=== PATIENT | female | born 1945 | race Caucasian/White ===

== ENCOUNTER 2021-10-06 23:05 | Inpatient (IN) ==
[2021-10-06] MEDS ORDERED: LACTATED RINGERS 1,000 ML IV ONE (23:35)
[2021-10-07 00:16] LABS: Basophils # 0.1 10*3/uL (0.0-0.2); Basophils % 0.3 % (0.0-0.8); Eosinophils % 0.1 % (0.00-10.9); Hematocrit 39.9 VOL% (35.7-47.0); Hemoglobin 13.1 GM/DL (12.0-16.0); Immature Granulocytes % 4.7 %; Lymphocytes # 1.5 10*3/uL (1.4-4.0); Mean Corpuscular HGB Conc 32.8 GM/DL (32-36); Mean Corpuscular Volume 95.2 FL (87-102); Mean Platelet Volume 11.7 FL (9.6-12.0); Monocytes % 6.1 % (1.7-12.7); NRBC # 0.02 10*3/uL; Neutrophils % 84.8 % (38.7-73.9); Platelet Count 161 T/CUMM (130-400); Red Blood Count 4.19 MC/CUMM (3.8-5.5); Red Cell Distribution Width 13.8 % (9.3-17.3)
[2021-10-07] MEDS ORDERED: cefTRIAXone 1,000 MG in SODIUM CHLORIDE 0.9% 100 ML IV STA (00:26)
[2021-10-07 00:47] LABS: Alanine Aminotransferase 54 U/L (13-56); Albumin 2.9 G/DL (3.4-5.0); Alkaline Phosphatase 53 U/L (45-117); Aspartate Amino Transferase 59 U/L (0-37); Blood Urea Nitrogen 25 MG/DL (7-18); Calcium 8.4 MG/DL (8.5-10.1); Carbon Dioxide 18 MMOL/L (21-32); Estimated Glom Filtration Rate 18 ML/MIN; Glucose 104 MG/DL (74-106); Osmolality,Calculated 291.7 MOS/KG (273-304); Potassium 3.1 MMOL/L (3.5-5.1); Sodium 145 MMOL/L (136-145); Total Protein 5.6 G/DL (6.4-8.2)
[2021-10-07] MEDS ORDERED: LACTATED RINGERS 1,000 ML IV ONE (01:23)
[2021-10-07 01:37] LABS: Band Neutrophils 7 % (0-10); Lymphocytes 5 % (20-55); Metamyelocytes 1 %; Platelet Estimate Normal; Segmented Neutrophils 83 % (50-85); Total Cells Counted 100
[2021-10-07 01:38] LABS: Stomatocytes Few
[2021-10-07 01:42] LABS: Bilirubin,Urine Negative (Negative); Blood, Urine Large mg/dL (Negative); Glucose,Urine (UA) Negative (Negative); Ketones,Urine Negative (Negative); Mucus,Urine Many /LPF (Occasional); Nitrite,Urine Positive (Negative); Protein,Urine 100 MG/DL; RBC,Urine 1734 /HPF (0-4); Urine Appearance CLOUDY (Clear); Urine Color Yellow (Yellow); Urine Specific Gravity 1.012 (1.001-1.035); Urine Urobilinogen < 2.0 EU/DL (<2.0)
[2021-10-07] MEDS ORDERED: DIGOXIN 0.5 MG/2 ML AMP IV STA (03:52)
[2021-10-07] MEDS ORDERED: NITROGLYCERIN SL 0.4 MG TABLET SL PRN (03:55)
[2021-10-07] MEDS ORDERED: ENOXAPARIN 100 MG/ML SYRINGE SUBCUT SCH (04:30)
[2021-10-07] MEDS ORDERED: ALBUTEROL 2.5 MG/3 ML NEB RESP TX PRN (04:49)
[2021-10-07] MEDS ORDERED: ONDANSETRON 4 MG/2 ML VIAL IV PRN (04:49)
[2021-10-07] MEDS ORDERED: ALUMINUM/MAGNES/SIMETH MAX STR 30 ML UDCUP PO PRN (04:49)
[2021-10-07] MEDS ORDERED: LEVOFLOXACIN INJ 750 MG/150 ML PREMIX IV ONE (05:00)
[2021-10-07] MEDS ORDERED: DIGOXIN 0.5 MG/2 ML AMP IV SCH (05:00)
[2021-10-07 06:06] LABS: Basophils # 0.2 10*3/uL (0.0-0.2); Basophils % 0.4 % (0.0-0.8); Hematocrit 38.8 VOL% (35.7-47.0); Hemoglobin 12.6 GM/DL (12.0-16.0); Immature Granulocytes Absolute 2.74 #; Lymphocytes # 2.5 10*3/uL (1.4-4.0); Lymphocytes % 6.4 % (21.3-54.2); Mean Corpuscular HGB Conc 32.5 GM/DL (32-36); Mean Corpuscular Volume 95.6 FL (87-102); Monocytes % 4.7 % (1.7-12.7); NRBC # 0.02 10*3/uL; Neutrophils % 81.5 % (38.7-73.9); Platelet Count 142 T/CUMM (130-400); Red Blood Count 4.06 MC/CUMM (3.8-5.5); Red Cell Distribution Width 13.9 % (9.3-17.3); White Blood Count 39.2 T/CUMM (4-12)
[2021-10-07] MEDS: PANTOPRAZOLE 40 MG VIAL IV SCH (06:20)
[2021-10-07 06:23] LABS: Albumin 2.6 G/DL (3.4-5.0); Bilirubin,Total 0.4 MG/DL (0.20-1.00); Calcium 8.5 MG/DL (8.5-10.1); Osmolality,Calculated 284.4 MOS/KG (273-304); Potassium 3.6 MMOL/L (3.5-5.1); Total Protein 5.7 G/DL (6.4-8.2)
[2021-10-07] MEDS: SODIUM BICARB INJ 50 MEQ in SODIUM CHLORIDE 0.45% 1,000 ML IV SCH ×2 (07:26→18:42)
[2021-10-07] MEDS: LEVOTHYROXINE 125 MCG TABLET PO SCH (07:33)
[2021-10-07 07:47] LABS: Band Neutrophils 8 % (0-10); Metamyelocytes 16 %; Segmented Neutrophils 74 % (50-85); Total Cells Counted 100
[2021-10-07 07:48] LABS: Platelet Estimate Normal
[2021-10-07] MEDS: ACETAMINOPHEN 325 MG TABLET PO PRN ×2 (08:07→16:53)
[2021-10-07] MEDS: ASPIRIN EC 81 MG TABLET PO SCH (08:08)
[2021-10-07] MEDS ORDERED: NOREPINEPHRINE 8 MG in SODIUM CHLORIDE 0.9% 242 ML IV PRN (08:29)
[2021-10-07] MEDS ORDERED: MAGNESIUM SULF RIDER 4 GM/100 ML PREMIX IV PRN (08:34)
[2021-10-07] MEDS: MAGNESIUM SULF RIDER 2 GM/50 ML PREMIX IV PRN (11:23)
[2021-10-07] MEDS: tiZANidine 4 MG TABLET PO PRN ×2 (11:23→18:00)
[2021-10-07] MEDS: POTASSIUM CHLORIDE 20 MEQ TABLET PO PRN (11:23)
[2021-10-07] MEDS ORDERED: HEPARIN DRIP 25,000 UNITS/500 ML PREMIX IV SCH (12:00)
[2021-10-07] MEDS: ROSUVASTATIN 20 MG TABLET PO SCH (21:17)
[2021-10-07] MEDS: cefTRIAXone 1,000 MG in SODIUM CHLORIDE 0.9% 100 ML IV SCH (21:31)
[2021-10-08] MEDS: tiZANidine 4 MG TABLET PO PRN ×2 (01:18→08:51)
[2021-10-08 03:31] LABS: Basophils % 0.1 % (0.0-0.8); Eosinophils % 0.1 % (0.00-10.9); Hematocrit 35.2 VOL% (35.7-47.0); Hemoglobin 11.5 GM/DL (12.0-16.0); Immature Granulocytes % 12.1 %; Immature Granulocytes Absolute 3.87 #; Lymphocytes # 2.5 10*3/uL (1.4-4.0); Lymphocytes % 7.8 % (21.3-54.2); Mean Corpuscular HGB Conc 32.7 GM/DL (32-36); Mean Corpuscular Volume 94.6 FL (87-102); Mean Platelet Volume 12.7 FL (9.6-12.0); Monocytes % 3.2 % (1.7-12.7); Neutrophils % 76.7 % (38.7-73.9); Platelet Count 109 T/CUMM (130-400); Red Blood Count 3.72 MC/CUMM (3.8-5.5); Red Cell Distribution Width 14.1 % (9.3-17.3); White Blood Count 31.9 T/CUMM (4-12)
[2021-10-08 03:43] LABS: Alanine Aminotransferase 33 U/L (13-56); Albumin 2.2 G/DL (3.4-5.0); Alkaline Phosphatase 51 U/L (45-117); Aspartate Amino Transferase 34 U/L (0-37); Bilirubin,Indirect 0.3 MG/DL (0.0-1.0); Bilirubin,Total < 0.39 MG/DL (0.20-1.00); Blood Urea Nitrogen 38 MG/DL (7-18); Calcium 8.3 MG/DL (8.5-10.1); Carbon Dioxide 22 MMOL/L (21-32); Estimated Glom Filtration Rate 23 ML/MIN; Glucose 96 MG/DL (74-106); Osmolality,Calculated 281.8 MOS/KG (273-304); Potassium 3.9 MMOL/L (3.5-5.1); Sodium 137 MMOL/L (136-145); Total Protein 5.1 G/DL (6.4-8.2)
[2021-10-08] MEDS: SODIUM BICARB INJ 50 MEQ in SODIUM CHLORIDE 0.45% 1,000 ML IV SCH ×3 (04:50→15:16)
[2021-10-08] MEDS: LEVOTHYROXINE 125 MCG TABLET PO SCH (06:11)
[2021-10-08 06:18] LABS: Band Neutrophils 13 % (0-10); Lymphocytes 7 % (20-55); Metamyelocytes 8 %; Platelet Estimate Adequate; Segmented Neutrophils 69 % (50-85); Total Cells Counted 100
[2021-10-08 06:19] LABS: Ovalocytes Few; Polychromasia Slight
[2021-10-08] MEDS: PANTOPRAZOLE 40 MG VIAL IV SCH (06:32)
[2021-10-08] MEDS: ASPIRIN EC 81 MG TABLET PO SCH (08:51)
[2021-10-08] MEDS: POTASSIUM CHLORIDE 20 MEQ TABLET PO PRN (08:51)
[2021-10-08 12:25] LABS: Risk Ratio 5.73; VLDL Cholesterol 30.8 MG/DL
[2021-10-08] MEDS: CITALOPRAM 20 MG TABLET PO SCH (20:35)
[2021-10-08] MEDS: ROSUVASTATIN 20 MG TABLET PO SCH ×2 (20:35→20:36)
[2021-10-08] MEDS: carvediloL 6.25 MG TABLET PO SCH (20:37)
[2021-10-08] MEDS: cefTRIAXone 1,000 MG in SODIUM CHLORIDE 0.9% 100 ML IV SCH (20:37)
[2021-10-08] MEDS: hydrALAZINE 20 MG/1 ML VIAL IV PRN (21:07)
[2021-10-08] MEDS: ACETAMINOPHEN 325 MG TABLET PO PRN (23:10)
[2021-10-09] MEDS: SODIUM BICARB INJ 50 MEQ in SODIUM CHLORIDE 0.45% 1,000 ML IV SCH ×3 (01:18→21:45)
[2021-10-09] MEDS: PANTOPRAZOLE 40 MG VIAL IV SCH (05:30)
[2021-10-09] MEDS: LEVOTHYROXINE 125 MCG TABLET PO SCH (05:44)
[2021-10-09 06:30] LABS: Basophils % 0.1 % (0.0-0.8); Eosinophils # 0.1 10*3/uL (0.0-0.87); Eosinophils % 0.3 % (0.00-10.9); Hematocrit 35.9 VOL% (35.7-47.0); Hemoglobin 12.1 GM/DL (12.0-16.0); Immature Granulocytes % 19.9 %; Immature Granulocytes Absolute 5.83 #; Lymphocytes # 2.6 10*3/uL (1.4-4.0); Lymphocytes % 8.8 % (21.3-54.2); Mean Corpuscular HGB Conc 33.7 GM/DL (32-36); Mean Corpuscular Volume 93.2 FL (87-102); Mean Platelet Volume 13.4 FL (9.6-12.0); Monocytes % 2.5 % (1.7-12.7); NRBC # 0.02 10*3/uL; Neutrophils % 68.4 % (38.7-73.9); Platelet Count 108 T/CUMM (130-400); Red Blood Count 3.85 MC/CUMM (3.8-5.5); Red Cell Distribution Width 13.9 % (9.3-17.3); White Blood Count 29.4 T/CUMM (4-12)
[2021-10-09 06:52] LABS: Albumin 2.1 G/DL (3.4-5.0); Bilirubin,Total 0.7 MG/DL (0.20-1.00); Calcium 8.3 MG/DL (8.5-10.1); Osmolality,Calculated 284.5 MOS/KG (273-304); Potassium 3.7 MMOL/L (3.5-5.1); Total Protein 5.5 G/DL (6.4-8.2)
[2021-10-09 07:04] LABS: Band Neutrophils 6 % (0-10); Hypochromia Slight; Lymphocytes 10 % (20-55); Microcytosis Slight; Platelet Estimate Decreased; Segmented Neutrophils 81 % (50-85); Total Cells Counted 100
[2021-10-09] MEDS: ASPIRIN EC 81 MG TABLET PO SCH (08:05)
[2021-10-09] MEDS: PANTOPRAZOLE 40 MG TABLET PO SCH (08:05)
[2021-10-09] MEDS: DULoxetine 30 MG CAPSULE PO SCH (08:05)
[2021-10-09] MEDS: carvediloL 6.25 MG TABLET PO SCH ×2 (08:05→23:07)
[2021-10-09] MEDS: amLODIPine 5 MG TABLET PO SCH (08:05)
[2021-10-09] MEDS ORDERED: LEVOFLOXACIN INJ 500 MG/100 ML PREMIX IV SCH (09:00)
[2021-10-09] MEDS: VANCOMYCIN 50 MG/ML 60 ML/BOTTLE PO SCH ×2 (13:30→17:50)
[2021-10-09] MEDS: ACETAMINOPHEN 325 MG TABLET PO PRN (13:32)
[2021-10-09] MEDS: ROSUVASTATIN 20 MG TABLET PO SCH (21:18)
[2021-10-09] MEDS: CITALOPRAM 20 MG TABLET PO SCH (21:48)
[2021-10-09] MEDS: tiZANidine 4 MG TABLET PO PRN (21:49)
[2021-10-09] MEDS: cefTRIAXone 1,000 MG in SODIUM CHLORIDE 0.9% 100 ML IV SCH (22:54)
[2021-10-10] MEDS: VANCOMYCIN 50 MG/ML 60 ML/BOTTLE PO SCH ×5 (04:41→23:35)
[2021-10-10 05:01] LABS: Basophils # 0.1 10*3/uL (0.0-0.2); Basophils % 0.4 % (0.0-0.8); Eosinophils # 0.2 10*3/uL (0.0-0.87); Eosinophils % 1.2 % (0.00-10.9); Hematocrit 35.5 VOL% (35.7-47.0); Hemoglobin 11.7 GM/DL (12.0-16.0); Immature Granulocytes % 0.5 %; Lymphocytes # 2.3 10*3/uL (1.4-4.0); Lymphocytes % 12.5 % (21.3-54.2); Mean Corpuscular Volume 92.7 FL (87-102); Mean Platelet Volume 12.8 FL (9.6-12.0); Monocytes % 4.8 % (1.7-12.7); Neutrophils % 80.6 % (38.7-73.9); Platelet Count 122 T/CUMM (130-400); Red Blood Count 3.83 MC/CUMM (3.8-5.5); Red Cell Distribution Width 13.8 % (9.3-17.3); White Blood Count 18.6 T/CUMM (4-12)
[2021-10-10 05:27] LABS: Calcium 8.2 MG/DL (8.5-10.1); Osmolality,Calculated 285.4 MOS/KG (273-304)
[2021-10-10 05:28] LABS: Hypochromia Slight; Lymphocytes 18 % (20-55); Microcytosis Slight; Platelet Estimate Normal; Segmented Neutrophils 81 % (50-85); Total Cells Counted 100
[2021-10-10] MEDS: LEVOTHYROXINE 125 MCG TABLET PO SCH (06:41)
[2021-10-10] MEDS: SODIUM BICARB INJ 50 MEQ in SODIUM CHLORIDE 0.45% 1,000 ML IV SCH ×2 (08:08→18:52)
[2021-10-10] MEDS ORDERED: ALUM/MAG/SIMETH/LIDO VISC 1:1 30 ML BOTTLE PO ONE ×2 (08:29→08:31)
[2021-10-10] MEDS: PANTOPRAZOLE 40 MG TABLET PO SCH (08:48)
[2021-10-10] MEDS: ASPIRIN EC 81 MG TABLET PO SCH (08:48)
[2021-10-10] MEDS: DULoxetine 30 MG CAPSULE PO SCH (08:48)
[2021-10-10] MEDS: carvediloL 6.25 MG TABLET PO SCH (08:48)
[2021-10-10] MEDS: hydrALAZINE 20 MG/1 ML VIAL IV PRN ×2 (08:48→14:03)
[2021-10-10] MEDS: amLODIPine 5 MG TABLET PO SCH (08:48)
[2021-10-10] MEDS: POTASSIUM CHLORIDE 20 MEQ TABLET PO PRN ×4 (08:48→16:01)
[2021-10-10] MEDS: ERTAPENEM 1,000 MG in SODIUM CHLORIDE 0.9% 100 ML IV SCH (10:33)
[2021-10-10] MEDS: MAGNESIUM SULF RIDER 2 GM/50 ML PREMIX IV PRN (13:44)
[2021-10-10] MEDS ORDERED: amLODIPine 5 MG TABLET PO ONE (13:51)
[2021-10-10] MEDS: ROSUVASTATIN 20 MG TABLET PO SCH (20:12)
[2021-10-10] MEDS: carvediloL 12.5 MG TABLET PO SCH (20:12)
[2021-10-10] MEDS: CITALOPRAM 20 MG TABLET PO SCH (20:13)
[2021-10-11] MEDS: SODIUM BICARB INJ 50 MEQ in SODIUM CHLORIDE 0.45% 1,000 ML IV SCH ×2 (05:25→16:34)
[2021-10-11] MEDS: POTASSIUM CHLORIDE 20 MEQ TABLET PO PRN (05:26)
[2021-10-11] MEDS: VANCOMYCIN 50 MG/ML 60 ML/BOTTLE PO SCH ×5 (05:26→23:21)
[2021-10-11] MEDS: LEVOTHYROXINE 125 MCG TABLET PO SCH (05:31)
[2021-10-11] MEDS: PANTOPRAZOLE 40 MG TABLET PO SCH (08:44)
[2021-10-11] MEDS: DULoxetine 30 MG CAPSULE PO SCH (08:44)
[2021-10-11] MEDS: ASPIRIN EC 81 MG TABLET PO SCH (08:44)
[2021-10-11] MEDS: carvediloL 12.5 MG TABLET PO SCH ×2 (08:44→20:53)
[2021-10-11] MEDS: amLODIPine 10 MG TABLET PO SCH (08:45)
[2021-10-11] MEDS: ERTAPENEM 1,000 MG in SODIUM CHLORIDE 0.9% 100 ML IV SCH (10:15)
[2021-10-11 14:05] LABS: Basophils # 0.1 10*3/uL (0.0-0.2); Basophils % 0.7 % (0.0-0.8); Eosinophils # 0.1 10*3/uL (0.0-0.87); Eosinophils % 0.9 % (0.00-10.9); Hematocrit 38.7 VOL% (35.7-47.0); Hemoglobin 12.8 GM/DL (12.0-16.0); Immature Granulocytes % 5.6 %; Immature Granulocytes Absolute 0.72 #; Lymphocytes # 2.1 10*3/uL (1.4-4.0); Mean Corpuscular HGB Conc 33.1 GM/DL (32-36); Mean Corpuscular Volume 92.6 FL (87-102); Mean Platelet Volume 12.1 FL (9.6-12.0); Monocytes % 12.2 % (1.7-12.7); Neutrophils % 64.6 % (38.7-73.9); Platelet Count 110 T/CUMM (130-400); Red Blood Count 4.18 MC/CUMM (3.8-5.5); Red Cell Distribution Width 13.4 % (9.3-17.3); White Blood Count 12.9 T/CUMM (4-12)
[2021-10-11 14:25] LABS: Calcium 8.1 MG/DL (8.5-10.1); Osmolality,Calculated 272.1 MOS/KG (273-304); Potassium 3.5 MMOL/L (3.5-5.1)
[2021-10-11 18:29] LABS: Lymphocytes 21 % (20-55); Metamyelocytes 2 %; Myelocytes 2 %; Segmented Neutrophils 66 % (50-85); Total Cells Counted 100
[2021-10-11 18:30] LABS: Microcytosis Slight; Toxic Granulation 1+
[2021-10-11 18:31] LABS: Platelet Estimate Decreased
[2021-10-11] MEDS: ROSUVASTATIN 20 MG TABLET PO SCH (20:53)
[2021-10-11] MEDS: CITALOPRAM 20 MG TABLET PO SCH (20:53)
[2021-10-11] MEDS: hydrALAZINE 20 MG/1 ML VIAL IV PRN (22:06)
[2021-10-12] MEDS: SODIUM BICARB INJ 50 MEQ in SODIUM CHLORIDE 0.45% 1,000 ML IV SCH ×2 (02:23→14:15)
[2021-10-12 05:21] LABS: Basophils # 0.1 10*3/uL (0.0-0.2); Basophils % 0.4 % (0.0-0.8); Eosinophils # 0.1 10*3/uL (0.0-0.87); Eosinophils % 0.8 % (0.00-10.9); Hematocrit 36.7 VOL% (35.7-47.0); Hemoglobin 12.2 GM/DL (12.0-16.0); Immature Granulocytes % 7.7 %; Immature Granulocytes Absolute 0.97 #; Lymphocytes # 2.6 10*3/uL (1.4-4.0); Lymphocytes % 20.8 % (21.3-54.2); Mean Corpuscular HGB Conc 33.2 GM/DL (32-36); Mean Corpuscular Volume 92.2 FL (87-102); Mean Platelet Volume 11.3 FL (9.6-12.0); Monocytes % 16.6 % (1.7-12.7); Neutrophils % 53.7 % (38.7-73.9); Platelet Count 178 T/CUMM (130-400); Red Blood Count 3.98 MC/CUMM (3.8-5.5); Red Cell Distribution Width 13.2 % (9.3-17.3); White Blood Count 12.6 T/CUMM (4-12)
[2021-10-12 05:46] LABS: Calcium 8.4 MG/DL (8.5-10.1); Osmolality,Calculated 270.1 MOS/KG (273-304); Potassium 3.4 MMOL/L (3.5-5.1)
[2021-10-12 05:52] LABS: Hypochromia Slight; Lymphocytes 22 % (20-55); Microcytosis Slight; Platelet Estimate Adequate; Segmented Neutrophils 58 % (50-85); Total Cells Counted 100
[2021-10-12] MEDS: VANCOMYCIN 50 MG/ML 60 ML/BOTTLE PO SCH ×3 (06:11→18:01)
[2021-10-12] MEDS: LEVOTHYROXINE 125 MCG TABLET PO SCH (06:11)
[2021-10-12] MEDS: POTASSIUM CHLORIDE 20 MEQ TABLET PO PRN (06:23)
[2021-10-12] MEDS: PANTOPRAZOLE 40 MG TABLET PO SCH (09:45)
[2021-10-12] MEDS: DULoxetine 30 MG CAPSULE PO SCH (09:45)
[2021-10-12] MEDS: carvediloL 12.5 MG TABLET PO SCH ×2 (09:45→20:05)
[2021-10-12] MEDS: ASPIRIN EC 81 MG TABLET PO SCH (09:45)
[2021-10-12] MEDS: amLODIPine 10 MG TABLET PO SCH (09:45)
[2021-10-12] MEDS: ERTAPENEM 1,000 MG in SODIUM CHLORIDE 0.9% 100 ML IV SCH (10:00)
[2021-10-12] MEDS ORDERED: FUROSEMIDE 40 MG/4 ML VIAL IV ONE (15:00)
[2021-10-12] MEDS: ROSUVASTATIN 20 MG TABLET PO SCH (20:04)
[2021-10-12] MEDS: CITALOPRAM 20 MG TABLET PO SCH (20:05)
[2021-10-13] MEDS: VANCOMYCIN 50 MG/ML 60 ML/BOTTLE PO SCH ×4 (00:58→17:32)
[2021-10-13] MEDS: SODIUM BICARB INJ 50 MEQ in SODIUM CHLORIDE 0.45% 1,000 ML IV SCH ×2 (01:11→13:27)
[2021-10-13] MEDS: LEVOTHYROXINE 125 MCG TABLET PO SCH (06:07)
[2021-10-13 06:08] LABS: Calcium 8.2 MG/DL (8.5-10.1); Osmolality,Calculated 269.1 MOS/KG (273-304); Potassium 3.2 MMOL/L (3.5-5.1)
[2021-10-13] MEDS: carvediloL 12.5 MG TABLET PO SCH ×2 (10:03→22:49)
[2021-10-13] MEDS: DULoxetine 30 MG CAPSULE PO SCH (10:03)
[2021-10-13] MEDS: PANTOPRAZOLE 40 MG TABLET PO SCH (10:03)
[2021-10-13] MEDS: POTASSIUM CHLORIDE 20 MEQ TABLET PO PRN ×4 (10:03→22:50)
[2021-10-13] MEDS: ASPIRIN EC 81 MG TABLET PO SCH (10:04)
[2021-10-13] MEDS: amLODIPine 10 MG TABLET PO SCH (10:04)
[2021-10-13] MEDS: ERTAPENEM 1,000 MG in SODIUM CHLORIDE 0.9% 100 ML IV SCH (13:31)
[2021-10-13] MEDS: SODIUM CHLORIDE 0.9% 1,000 ML IV SCH (19:00)
[2021-10-13] MEDS: ROSUVASTATIN 20 MG TABLET PO SCH (22:49)
[2021-10-13] MEDS: CITALOPRAM 20 MG TABLET PO SCH (22:50)
[2021-10-14] MEDS: VANCOMYCIN 50 MG/ML 60 ML/BOTTLE PO SCH ×4 (00:52→18:15)
[2021-10-14] MEDS: LEVOTHYROXINE 125 MCG TABLET PO SCH (06:08)
[2021-10-14 06:10] LABS: Calcium 8.4 MG/DL (8.5-10.1); Osmolality,Calculated 275.7 MOS/KG (273-304)
[2021-10-14] MEDS: SODIUM CHLORIDE 0.9% 1,000 ML IV SCH ×3 (06:11→20:40)
[2021-10-14] MEDS: carvediloL 12.5 MG TABLET PO SCH ×2 (09:27→23:01)
[2021-10-14] MEDS: PANTOPRAZOLE 40 MG TABLET PO SCH (09:27)
[2021-10-14] MEDS: DULoxetine 30 MG CAPSULE PO SCH (09:27)
[2021-10-14] MEDS: amLODIPine 10 MG TABLET PO SCH (09:27)
[2021-10-14] MEDS: ASPIRIN EC 81 MG TABLET PO SCH (09:27)
[2021-10-14] MEDS: ERTAPENEM 1,000 MG in SODIUM CHLORIDE 0.9% 100 ML IV SCH (09:32)
[2021-10-14] MEDS: CITALOPRAM 20 MG TABLET PO SCH (23:01)
[2021-10-14] MEDS: ROSUVASTATIN 20 MG TABLET PO SCH (23:01)
[2021-10-15] MEDS: VANCOMYCIN 50 MG/ML 60 ML/BOTTLE PO SCH ×5 (00:39→23:17)
[2021-10-15] MEDS: LEVOTHYROXINE 125 MCG TABLET PO SCH ×2 (05:25→08:14)
[2021-10-15] MEDS: ERTAPENEM 1,000 MG in SODIUM CHLORIDE 0.9% 100 ML IV SCH (10:01)
[2021-10-15] MEDS: amLODIPine 10 MG TABLET PO SCH (10:02)
[2021-10-15] MEDS: carvediloL 12.5 MG TABLET PO SCH ×2 (10:02→23:14)
[2021-10-15] MEDS: DULoxetine 30 MG CAPSULE PO SCH (10:02)
[2021-10-15] MEDS: PANTOPRAZOLE 40 MG TABLET PO SCH (10:03)
[2021-10-15] MEDS: ASPIRIN EC 81 MG TABLET PO SCH (10:11)
[2021-10-15] MEDS: SODIUM CHLORIDE 0.9% 1,000 ML IV SCH (17:15)
[2021-10-15] MEDS: ROSUVASTATIN 20 MG TABLET PO SCH (23:15)
[2021-10-15] MEDS: CITALOPRAM 20 MG TABLET PO SCH (23:15)
[2021-10-16] MEDS: VANCOMYCIN 50 MG/ML 60 ML/BOTTLE PO SCH ×2 (05:54→13:36)
[2021-10-16] MEDS: LEVOTHYROXINE 125 MCG TABLET PO SCH (05:54)
[2021-10-16] MEDS: amLODIPine 10 MG TABLET PO SCH (09:36)
[2021-10-16] MEDS: PANTOPRAZOLE 40 MG TABLET PO SCH (09:36)
[2021-10-16] MEDS: ASPIRIN EC 81 MG TABLET PO SCH (09:36)
[2021-10-16] MEDS: carvediloL 12.5 MG TABLET PO SCH (09:36)
[2021-10-16] MEDS: DULoxetine 30 MG CAPSULE PO SCH (09:36)
[2021-10-16] MEDS: ERTAPENEM 1,000 MG in SODIUM CHLORIDE 0.9% 100 ML IV SCH (09:37)
[2021-10-16 15:46] VITALS: BP 163/72
== END 2021-10-16 15:30 | disposition home health service (06) | DRG 871 ==
LOC: N.ED 23:05 → SUATTDRO 10-07 04:49 → N.EDINP 10-07 04:49 → N.ICU 10-07 06:14 → N.5E 10-12 12:58
PROVIDERS: ADMIT Internal Medicine; ATTEND Internal Medicine